=== PATIENT | female | born 1985 | race Caucasian/White ===

== ENCOUNTER 2016-12-30 15:49 | Emergency (ER) | payer BC ==
[~2016-12-30] VITALS: Wt 77.5 kg
[2016-12-30 16:53] LABS: ADD UMIC YES; URINE BILIRUBIN (Dip) NEGATIVE (NEGATIVE); URINE BLOOD (Dip) NEGATIVE (NEGATIVE); URINE COLOR YELLOW (YELLOW); URINE GLUCOSE (Dip) NEGATIVE (NEGATIVE); URINE KETONES (Dip) NEGATIVE (NEGATIVE); URINE LEUKOCYTE ESTERASE (Dip) NEGATIVE (NEGATIVE); URINE NITRITE (Dip) NEGATIVE (NEGATIVE); URINE TOTAL PROTEIN (Dip) NEGATIVE (NEGATIVE); URINE UROBILINOGEN (Dip) 0.2 E.U./dL (0.1-1.0)
--- NOTE | 2016-12-30 16:58 | RADRPT ---
PROCEDURE: US Pelvis. CLINICAL INDICATION: Left lower quadrant pain. TECHNIQUE: Multiple sonographic images of the pelvis were obtained utilizing a transabdominal and endovaginal technique. The images were reviewed on a PACS workstation. COMPARISON: None available. FINDINGS: The uterus is visualized and measures 7.6 x 3.4 x 5.1 cm. The endometrial echo complex is prominent and measures 14.5 mm. This could be secondary to the secretory phase of the menstrual cycle. There i s a small amount of free fluid in the posterior cul-de-sac.. The right ovary has a normal echotextur e and measures 4.2 x 3.0 x 2.9 cm. The left ovary has a normal echotexture and measures 3.5 x 1.4 x 2.6 cm. There is a 2.3 x 1.6 cm collapsing hemorrhagic right ovarian cyst. No adnexal masses are n oted. IMPRESSION: 1. 2.3 x 1.6 cm hemorrhagic right ovarian cyst. 2. Prominent endometrial canal complex, likely secondary to the phase of the menstrual cycle. RPTAT: [facility] Physician Willian Date Time Electronically viewed and signed by Physician Willian on 12/30/2016 16:58 /
[2016-12-30 17:00] LABS: BACTERIA,URINE FEW; URINE RBCS 0-2 /HPF (0)
--- NOTE | 2016-12-30 17:04 | RADRPT ---
PROCEDURE: XR Abdomen CLINICAL INDICATION: Left lower quadrant pain TECHNIQUE: An AP supine radiograph of the abdomen was submitted. COMPARISON: 05/27/2015 FINDINGS: Some of the surgical isael are no longer seen within the right upper quadrant of the abdomen and t he biliary stent has been removed. The bowel gas pattern is nonspecific. Stool is seen throughout the colon. No organomegaly or discrete mass is identified. No pathological calcification is identified. The osseous elements appear unremarkable. IMPRESSION: 1. Interval removal of the biliary stent and the superficial isael. 2. Nonspecific bowel gas pattern 3. Otherwise, unremarkable AP supine abdomen. Physician Leonila Date Time Electronically viewed and signed by Physician Leonila on 12/30/2016 17:04 /
[2016-12-30 17:08] LABS: ADD SCAN DIFF NO
[2016-12-30 17:10] LABS: BASOPHILS % 0.4 % (0.0-2.0); EOSINOPHILS # 0.3 10^3/ul (0.0-0.5); EOSINOPHILS % 4.6 % (0.0-7.0); HEMATOCRIT 32.8 % (37.0-47.0); HEMOGLOBIN 10.5 g/dl (12.0-16.0); LYMPHOCYTES # 2.7 10^3/ul (0.8-2.9); LYMPHOCYTES % 36.1 % (15.0-51.0); MEAN CORPUSCULAR HEMOGLOBIN 24.8 pg (29.0-33.0); MEAN CORPUSCULAR VOLUME 77.4 fl (82.0-101.0); MEAN PLATELET VOLUME 11.7 fl (7.4-10.4); MONOCYTE # 0.6 10^3/ul (0.3-0.9); MONOCYTES % 8.3 % (0.0-11.0); NEUTROPHIL # 3.7 10^3/ul (1.6-7.5); NEUTROPHILS % 50.2 % (39.0-77.0); PLATELET COUNT 219 10^3/UL (140-415); RED BLOOD COUNT 4.24 10^6/ul (4.20-5.40); RED CELL DISTRIBUTION WIDTH 16.7 % (11.5-14.5); WHITE BLOOD COUNT 7.4 10^3/ul (4.8-10.8)
[2016-12-30] MEDS ORDERED: LIDOCAINE/MYLANTA 40 ML BTL PO ONE (17:30)
[2016-12-30 17:42] LABS: ALBUMIN 3.9 g/dl (3.3-4.9)
[2016-12-30 17:43] LABS: POTASSIUM 4.3 mmol/L (3.5-5.1)
[2016-12-30 17:45] LABS: ALBUMIN/GLOBULIN RATIO 1.21; BILIRUBIN,INDIRECT 0.3 mg/dl (0-1.1); BILIRUBIN,TOTAL 0.3 mg/dl (0.2-1.3); CREATININE 0.71 mg/dl (0.44-1.00); TOTAL PROTEIN 7.1 g/dl (6.1-8.1)
[2016-12-30 17:46] LABS: CALCIUM 8.6 mg/dl (8.4-10.2)
[2016-12-30] MEDS ORDERED: POLY17PO6 PO (18:53)
[2016-12-30] MEDS ORDERED: OMEP20CA16 PO (18:53)
[2016-12-30] MEDS ORDERED: RANI150T9 PO (18:53)
[2016-12-30] MEDS ORDERED: MAGN296S40 PO (18:53)
[2016-12-30 19:04] VITALS: BP 100/64; PULSE 78; RESP 16
--- NOTE | 2016-12-31 00:14 | ERD ---
ER Documentation Chief Complaint Date/Time DATE: 12/31/16 TIME: 00:05 Chief Complaint LOWER ABD PAIN V2GOYSQT WORSE LAST NIGHT LAST BM X2DAYS AGO HPI 31-year-old female complaining of left lower quadrant abdominal pain on and off 3 months. Pain is worse since last night. Described pain as sharp, needlelike , comes and goes, lasting less than a minute. The abdominal pain is also worse after eating. Patient has history of constipation, states that her last bowel movement was 2 days ago. Her LMP was 12/05/2016. Denies fever or chills. Denies nausea, vomiting or diarrhea. Denies dysuria. ROS All systems reviewed and are negative except as per history of present illness. Medications Home Meds Active Scripts Polyethylene Glycol* (Miralax*) 17 Gm Powd.pack, 17 GM PO DAILY, #30 PACKET Prov:[place] PEDERSON NP 12/30/16 Magnesium Citrate* (Magnesium Citrate*) 296 Ml Solution, 296 ML PO ONCE Y for CONSTIPATION, #1 BOTTLE Prov:[place] PEDERSON. LEONARD 12/30/16 Ranitidine Hcl* (Zantac*) 150 Mg Tablet, 150 MG PO BID Y for EPIGASTRIC PAIN, # 30 TAB Prov:[place] PEDERSON. LEONARD 12/30/16 Omeprazole* (Omeprazole*) 20 Mg Capsule., 20 MG PO QAM, #14 Prov:[place] PEDERSON. LEONARD 12/30/16 Allergies Allergies: Coded Allergies: No Known Drug Allergy (Verified Allergy, Mild, 05/27/15) PMhx/Soc History of Surgery: No Anesthesia Reaction: No Hx Neurological Disorder: No Hx Respiratory Disorders: No Hx Cardiac Disorders: No Hx Psychiatric Problems: No Hx Miscellaneous Medical Probl: No Hx Alcohol Use: No Hx Substance Use: No Hx Tobacco Use: No Smoking Status: Never smoker Physical Exam Vitals Vital Signs Date Time Temp Pulse Resp B/P Pulse Ox O2 Delivery O2 Flow Rate FiO2 12/30/16 19:04 78 16 100/64 98 Room Air 12/30/16 15:51 98.8 80 20 131/59 99 Physical Exam General: Well-developed, well-nourished, conscious and coherent, in no distress Skin: Warm and dry without rash, good texture and turgor Head: Normocephalic without evidence of trauma Eyes: Sclera and conjunctivae normal; pupils equal, round, and reactive to light; extraocular movements are intact Neck: Supple without meningismus or adenopathy. Carotids are equal. Trachea midline. No bruits or JVD Chest: Normal AP diameter. Good expansion without retractions. Nontender. Lungs are clear to auscultate bilaterally with good tidal volume Heart: Regular rate and rhythm. No murmur, rub, or gallops heard Abdomen: Soft, epigastric and left lower quadrant tenderness noted without guarding or rebound. Bowel sounds are decreased. No hepatosplenomegaly Back: Without spinal or CVA tenderness Pelvis: Nontender to palpation and stable to compression Extremities: Full range of motion. Good strength bilaterally. No clubbing, cyanosis, or edema. Peripheral pulses are intact. Sensation intact Neuro: Alert and oriented 4, GCS 15. Cranial nerves grossly intact. Motor and sensory exams nonfocal. Moves all extremities. Speech clear. Gait normal Result Diagram: 12/30/16 1655 12/30/16 1655 Results 24 hrs Laboratory Tests Test 12/30/16 16:35 12/30/16 16:55 Urine Color YELLOW Urine Clarity CLOUDY Urine pH 6.0 Urine Specific [place] 1.020 Urine Ketones NEGATIVE Urine Nitrite NEGATIVE Urine Bilirubin NEGATIVE Urine Urobilinogen 0.2 E.U./dL Urine Leukocyte Esterase NEGATIVE Urine Microscopic RBC 0-2/HPF Urine Microscopic WBC 0-2/HPF Urine Epithelial Cells FEW Urine Bacteria FEW Urine Hemoglobin NEGATIVE Urine Glucose NEGATIVE% Urine Total Protein NEGATIVE White Blood Count 7.410^3/ul Red Blood Count 4.2410^6/ul Hemoglobin 10.5g/dl Hematocrit 32.8% Mean Corpuscular Volume 77.4fl Mean Corpuscular Hemoglobin 24.8pg Mean Corpuscular Hemoglobin Concent 32.0g/dl Red Cell Distribution Width 16.7% Platelet Count 06143^3/UL Mean Platelet Volume 11.7fl Neutrophils % 50.2% Lymphocytes % 36.1% Monocytes % 8.3% Eosinophils % 4.6% Basophils % 0.4% Nucleated Red Blood Cells % 0.0/100WBC Neutrophils # 3.710^3/ul Lymphocytes # 2.710^3/ul Monocytes # 0.610^3/ul Eosinophils # 0.310^3/ul Basophils # 0.010^3/ul Nucleated Red Blood Cells # 0.010^3/ul Sodium Level 139mmol/L Potassium Level 4.3mmol/L Chloride Level 103mmol/L Carbon Dioxide Level 25mmol/L Anion Gap 15 Blood Urea Nitrogen 10mg/dl Creatinine 0.71mg/dl Glucose Level 81mg/dl Calcium Level 8.6mg/dl Total Bilirubin 0.3mg/dl Direct Bilirubin 0.00mg/dl Indirect Bilirubin 0.3mg/dl Aspartate Amino Transf (AST/SGOT) 17IU/L Alanine Aminotransferase (ALT/SGPT) 25IU/L Alkaline Phosphatase 66IU/L Total Protein 7.1g/dl Albumin 3.9g/dl Globulin 3.20g/dl Albumin/Globulin Ratio 1.21 Lipase 52U/L Current Medications Medications (Trade) Dose Ordered Sig/Yvette Route PRN Reason Start Time Stop Time Status Last Admin Dose Admin Miscellaneous Medication (Gi Cocktail (2)) 40 ml ONCE ONCE PO 12/30/16 17:30 12/30/16 17:31 DC 12/30/16 17:17 PROCEDURE: XR Abdomen CLINICAL INDICATION: Left lower quadrant pain TECHNIQUE: An AP supine radiograph of the abdomen was submitted. COMPARISON: 05/27/2015 FINDINGS: Some of the surgical isael are no longer seen within the right upper quadrant of the abdomen and the biliary stent has been removed. The bowel gas pattern is nonspecific. Stool is seen throughout the colon. No organomegaly or discrete mass is identified. No pathological calcification is identified. The osseous elements appear unremarkable. IMPRESSION: 1. Interval removal of the biliary stent and the superficial isael. 2. Nonspecific bowel gas pattern 3. Otherwise, unremarkable AP supine abdomen. Physician Leonila Date Time Electronically viewed and signed by Physician Leonila on 12/30/2016 17:04 RH/ CC: [place] PEDERSON NP PROCEDURE: US Pelvis. CLINICAL INDICATION: Left lower quadrant pain. TECHNIQUE: Multiple sonographic images of the pelvis were obtained utilizing a transabdominal and endovaginal technique. The images were reviewed on a PACS workstation. COMPARISON: None available. FINDINGS: The uterus is visualized and measures 7.6 x 3.4 x 5.1 cm. The endometrial echo complex is prominent and measures 14.5 mm. This could be secondary to the secretory phase of the menstrual cycle. There is a small amount of free fluid in the posterior cul-de-sac.. The right ovary has a normal echotexture and measures 4.2 x 3.0 x 2.9 cm. The left ovary has a normal echotexture and measures 3.5 x 1.4 x 2.6 cm. There is a 2.3 x 1.6 cm collapsing hemorrhagic right ovarian cyst. No adnexal masses are noted. IMPRESSION: 1. 2.3 x 1.6 cm hemorrhagic right ovarian cyst. 2. Prominent endometrial canal complex, likely secondary to the phase of the menstrual cycle. RPTAT: AACC Physician Willian Date Time Electronically viewed and signed by Miguelito Quach Physician on 12/30/2016 16: 58 JH/ CC: [place] PEDERSON. AD OPERATIONS ASSOCIATE Procedures/MDM Well-appearing 31-year-old female presented to ED with on and off abdominal pain 3 month. CBC, CMP, lipase, and UA was obtained. All are unremarkable except for slight anemia with CBC hemoglobin 10.5 and hematocrit 32.8. KUB was unremarkable, stool is seen throughout the colon. Pelvic ultrasound showed a 2.3 x 1.6 cm hemorrhagic right ovarian cyst, prominent endometrial canal complex , likely secondary to the face of the menstrual cycle. Low suspicion for acute appendicitis, pancreatitis, bowel obstruction, or other acute abdomen. Likely her left lower quadrant pain is due to constipation. Education provided for patient regarding increasing fluids increasing fiber in her diet. Patient also found to have epigastric pain on exam, likely due to gastritis. Patient appears well, stable for discharge and outpatient management. Medical decision making shared with patient and family. Education provided to patient and family. Patient and family expressed understanding of the plan. Medications on discharge: Omeprazole, ranitidine, magnesium citrate. Follow-up: Primary care provider in 2-3 days or return to ED if worse. Departure Diagnosis: Primary Impression: Epigastric pain Additional Impression: Constipation Constipation type: unspecified constipation type Qualified Code: K59.00 - Constipation, unspecified constipation type Condition: Stable Patient Instructions: Understanding Gastritis, Constipation (Adult) Referrals: [facility] YOU HAVE RECEIVED A MEDICAL SCREENING EXAM AND THE RESULTS INDICATE THAT YOU DO NOT HAVE A CONDITION THAT REQUIRES URGENT TREATMENT IN THE EMERGENCY DEPARTMENT. FURTHER EVALUATION AND TREATMENT OF YOUR CONDITION CAN WAIT UNTIL YOU ARE SEEN IN YOUR DOCTORS OFFICE WITHIN THE NEXT 1-2 DAYS. IT IS YOUR RESPONSIBILITY TO MAKE AN APPOINTMENT FOR FOLOW-UP CARE. IF YOU HAVE A PRIMARY DOCTOR --you should call your primary doctor and schedule an appointment IF YOU DO NOT HAVE A PRIMARY DOCTOR YOU CAN CALL OUR PHYSICIAN REFERRAL HOTLINE AT IF YOU CAN NOT AFFORD TO SEE A PHYSICIAN YOU CAN CHOSE FROM THE FOLLOWING [facility] CLINICS [facility] [address] [facility]. [facility] [address] [facility] [facility] [address] [facility] [facility] [address] [facility]. [facility] [address] [facility]. [facility]. [address] Additional Instructions: Call your primary care doctor TOMORROW for an appointment during the next 2-3 days.See the doctor sooner or return here if your condition worsens before your appointment time. [place] PEDERSON NP December 31, 2016 00:14
== END 2016-12-30 19:05 | disposition home or self-care (01) ==
LOC: FTE 15:49
DX: R10.13 Epigastric pain (principal); K59.00 Constipation, unspecified
CPT/HCPCS: 36415; 74000; 76830; 76856; 80053; 81001; 83690; 85025

== ENCOUNTER 2017-10-02 01:17 | Emergency (ER) | END 2017-10-02 03:41 | disposition home or self-care (01) ==

== ENCOUNTER 2019-03-07 09:24 | Emergency (ER) | payer BC, OTHER ==
[~2019-03-07] VITALS: Ht 154.9 cm; Wt 70.0 kg
[~2019-03-07 09:24] MED LIST: ALPR1TAB2 PO; IBUP800T48 PO; MAGN296S40 PO; OMEP20CA16 PO; POLY17PO6 PO; RANI150T35 PO
[2019-03-07 09:30] VITALS: BP 105/77; PULSE 88; RESP 17; Ht 154.9 cm; Wt 70.0 kg
--- NOTE | 2019-03-07 09:59 | ERD ---
ER Documentation Chief Complaint Chief Complaint BIB RA FOR RT ANKLE INJURY. FELL FROM STAIRS. HPI Patient is a 33-year-old female brought in by rescue ambulance for right foot and ankle pain. She does have a fracture in her left ankle which she is wearing a boot and states that because of this she has been putting most of her weight on her right lower extremity. Today when she was coming down the stairs she twisted her ankle and fell down the stairs. She now has right lateral ankle pain. She is unable to bear weight secondary to the pain. She denies any other areas of injury. No back pain. No head or neck pain. ROS All systems reviewed and are negative except as per history of present illness. Medications Home Meds Active Scripts Ibuprofen* (Motrin*) 800 Mg Tab, 800 MG PO Q6, #30 TAB Prov:SHANNAN OSULLIVAN PA-C 03/07/19 Alprazolam* (Xanax*) 1 Mg Tab, 1 MG PO Q8H PRN for ANXIETY, #10 TAB Prov:YONY AYALA NP 10/02/17 Polyethylene Glycol* (Miralax*) 17 Gm Powd.pack, 17 GM PO DAILY, #30 PACKET Prov:[place] PEDERSON NP 12/30/16 Magnesium Citrate* (Magnesium Citrate*) 296 Ml Solution, 296 ML PO ONCE PRN for CONSTIPATION, #1 BOTTLE Prov:[place] PEDERSON. LEONARD 12/30/16 Ranitidine Hcl* (Zantac*) 150 Mg Tablet, 150 MG PO BID PRN for EPIGASTRIC PAIN, #30 TAB Prov:[place] PEDERSON NP 12/30/16 Omeprazole* (Omeprazole*) 20 Mg Capsule.dr, 20 MG PO QAM, #14 Prov:[place] PEDERSON. NAIL MILL WORKER 12/30/16 Allergies Allergies: Coded Allergies: No Known Drug Allergy (Verified Allergy, Mild, 03/07/19) PMhx/Soc History of Surgery: Yes (gallbladder) Anesthesia Reaction: No Hx Neurological Disorder: No Hx Respiratory Disorders: No Hx Cardiac Disorders: No Hx Psychiatric Problems: Yes (Anxiety) Hx Miscellaneous Medical Probl: No Hx Alcohol Use: No Hx Substance Use: No Hx Tobacco Use: No Smoking Status: Never smoker FmHx Family History: No diabetes Physical Exam Vitals Vital Signs Date Temp Pulse Resp B/P (MAP) Pulse Ox O2 O2 Flow FiO2 Time Delivery Rate 03/07/19 97.8 88 17 105/77 99 09:30 (86) Physical Exam Const: No acute distress Head: Atraumatic Eyes: Normal Conjunctiva ENT: Normal External Ears, Nose and Mouth. Neck: Full range of motion. No meningismus. Resp: Clear to auscultation bilaterally Cardio: Regular rate and rhythm, no murmurs Back Exam: Compartments: Soft Motor: Normal flexion and extension of bilateral hip/knee/ankle/foot Sensation: Intact to light touch throughout Bones: No midline TTP Lower Extremity -right Skin: No laceration Compartments: Soft Motor: Full active range of motion hip/knee/ankle/foot Sensation: Intact to light touch FDWS/MF/LF/P surfaces. Bones: Lateral malleoli or tenderness Joints: Lateral malleoli are swelling, dorsal surface of right foot Pulses/Perfusion: 2+ DP, Capillary refill < 2 seconds Results 24 hrs Current Medications Medications Dose Sig/Yvette Start Time Status Last (Trade) Ordered Route PRN Stop Time Admin Dose Reason Admin 1 tab ONCE ONCE 03/07/19 DC 03/07/19 Acetaminophen PO 10:00 09:42 / 03/07/19 10:01 Hydrocodone Bitart ([place] (5/325)) Procedures/MDM 33-year-old female is here with right foot and ankle pain after twisting injury. X-rays ordered. She was given [place] for pain. X-rays are negative. Her ankle was Issac wrap. She has crutches at home. Prescription for Motrin given. Patient counseled regarding my diagnostic impression and care plan. Prior to discharge all questions answered. Pt agrees with treatment plan and understands strict return precautions. Pt is instructed to follow up with primary care provider within 24-48 hours. Precautionary instructions provided including instructions to return to the ER if not improving or for any worsening or changing symptoms or concerns. Departure Diagnosis: Primary Impression: Ankle sprain Condition: Stable SHANNAN OSULLIVAN PA-C Mar 07, 2019 09:59
[2019-03-07] MEDS ORDERED: HYDROCODONE/APAP (5/325) TAB PO ONE (10:00)
== END 2019-03-07 10:40 | disposition home or self-care (01) ==
LOC: FTE 09:24
DX: S93.401A Sprain of unspecified ligament of right ankle, initial encounter (principal); W10.8XXA Fall (on) (from) other stairs and steps, initial encounter; Y92.9 Unspecified place or not applicable
CPT/HCPCS: 73610; 73630; Z7502; Z7610